=== PATIENT | male | born 1960 | race African-American/Black ===

== ENCOUNTER 2019-03-31 18:29 | Inpatient (IN) | payer OTHER ==
[~2019-03-31] VITALS: Ht 182.9 cm; Wt 88.6 kg
[2019-03-31] MEDS ORDERED: SODIUM CHLORIDE 3% 150 ML IV ONE (18:45)
[2019-03-31] MEDS ORDERED: HALOPERIDOL LACTATE 5 MG/ML VIAL ONE ×2 (18:47→18:54)
[2019-03-31] MEDS ORDERED: LORazepam 2 MG/ML VIAL ONE (18:51)
[2019-03-31] MEDS ORDERED: DiphenhydrAMINE HCL 50 MG/ML VIAL ONE (18:51)
[2019-03-31 18:52] LABS: EOSINOPHILS % (AUTO) 0 % (1.0-6.0); HEMOGLOBIN 12.9 g/dL (13.5-17.5); LYMPHOCYTES # (AUTO) 0.8 K/uL (1.0-4.8); LYMPHOCYTES % (AUTO) 6.4 % (22.0-44.0); MEAN CORPUSCULAR HEMOGLOBIN 28.8 pg (26.0-34.0); MEAN CORPUSCULAR HGB CONC 33.9 G/dL (31.0-37.0); MEAN CORPUSCULAR VOLUME 85 fL (80-100); MONOCYTES # (AUTO) 0.7 K/uL (0.1-1.0); MONOCYTES % (AUTO) 6.2 % (2.0-9.0); NEUTROPHILS # (AUTO) 10.3 K/uL (1.8-7.7); PLATELET COUNT (AUTO) 355 K/uL (150-450); RED BLOOD CELL COUNT(AUTO) 4.47 MIL/uL (4.50-5.90); RED CELL DISTRIBUTION WIDTH 15.6 % (11.5-14.5)
[2019-03-31 18:53] LABS: NEUTROPHILS % (AUTO) 87.4 % (40.0-70.0)
[2019-03-31] MEDS ORDERED: ROCURONIUM BROMIDE 10 MG/ML 5 ML VIAL ONE (19:01)
[2019-03-31] MEDS ORDERED: RAPID SEQUENCE KIT [RSI] 1 EACH KIT ONE (19:01)
[2019-03-31 19:02] LABS: CALCIUM, TOTAL 8.6 mg/dL (8.8-10.5); CREATININE 1.5 mg/dL (0.60-1.30); POTASSIUM 3.1 mmol/L (3.5-5.1)
[2019-03-31 19:04] LABS: ALBUMIN 3.7 g/dL (3.4-5.0); PROTHROMBIN TIME 9.8 SEC (9.4-11.6)
[2019-03-31 19:08] LABS: BILIRUBIN,TOTAL 1.5 mg/dL (0.1-1.0); TOTAL PROTEIN, SERUM 7.9 g/dL (6.4-8.2)
[2019-03-31] MEDS ORDERED: ASPIRIN 325 MG TABLET PO ONE (19:30)
[2019-03-31] MEDS ORDERED: DiphenhydrAMINE HCL 50 MG/ML VIAL IVP ONE (19:45)
[2019-03-31] MEDS ORDERED: HALOPERIDOL LACTATE 5 MG/ML VIAL IVP ONE ×2 (19:45)
[2019-03-31] MEDS ORDERED: DESMOPRESSIN ACETATE 4 MCG/ML VIAL IVP ONE (19:45)
[2019-03-31] MEDS ORDERED: LORazepam 2 MG/ML VIAL IVP ONE (19:45)
[2019-03-31] MEDS ORDERED: ASPIRIN 300 MG RECTAL SUPPOSITORY PR ONE (19:45)
[2019-03-31 20:34] LABS: CALCIUM, TOTAL 8.3 mg/dL (8.8-10.5); CREATININE 1.4 mg/dL (0.60-1.30); POTASSIUM 3.1 mmol/L (3.5-5.1)
[2019-03-31 21:01] LABS: APPEARANCE,URINE CLEAR (CLEAR); BILIRUBIN,URINE NEGATIVE (NEGATIVE); GLUCOSE, URINE (UA) NEGATIVE (NEGATIVE); KETONES,URINE NEGATIVE (NEGATIVE); LEUKOCYTE ESTERASE ,URINE NEGATIVE (NEGATIVE); NITRATE,URINE NEGATIVE (NEGATIVE); OCCULT BLOOD,URINE NEGATIVE (NEGATIVE); PH,URINE 6.5 (5.0-8.0); PROTEIN,URINE NEGATIVE (NEGATIVE); UROBILINOGEN,URINE 0.2 mg/dL (<=1.0)
[2019-03-31 21:07] LABS: AMPHET/METH SCREEN,URINE NEGATIVE (NEGATIVE); BARBITURATE SCREEN, URINE NEGATIVE (NEGATIVE); BENZODIAZEPINES SCREEN,URINE NEGATIVE (NEGATIVE); CANNABINOID SCREEN,URINE NEGATIVE (NEGATIVE); COCAINE SCREEN,URINE NEGATIVE (NEGATIVE); METHADONE SCREEN, URINE NEGATIVE (NEGATIVE); OPIATE SCREEN,URINE NEGATIVE (NEGATIVE)
[2019-03-31 21:09] LABS: PHENCYCLIDINE SCREEN,URINE NEGATIVE (NEGATIVE)
[2019-03-31 21:11] LABS: BACTERIA,URINE None Seen /HPF (None Seen); RBC,URINE None Seen /HPF (0-2); SQUAMOUS EPITHELIAL CELL,UR Few /LPF (None Seen); WBC,URINE None Seen /HPF (0-5)
[2019-03-31] MEDS: POTASSIUM CHL 10 MEQ/WATER 50 ML IV SCH ×3 (21:21→23:04)
[2019-03-31 21:53] LABS: MAGNESIUM 2.1 mg/dL (1.80-2.40)
[2019-03-31] MEDS ORDERED: ACETAMINOPHEN 325 MG TABLET PO PRN ×2 (22:30)
[2019-03-31] MEDS ORDERED: SODIUM CHLORIDE 3% 500 ML IV ONE (22:30)
[2019-03-31] MEDS ORDERED: 0.9% SODIUM CHLORIDE 10 ML SYRINGE IVP PRN (22:30)
[2019-03-31 22:42] LABS: SODIUM,URINE RANDOM 12 mmol/l (20-110)
[2019-03-31 22:44] LABS: OSMOLALITY,URINE 184 mOS/kg (50-1200)
[2019-04-01] VITALS (7 sets, daily range): BP systolic 104–169; BP diastolic 55–84
[2019-04-01] MEDS: HEPARIN SODIUM,PORCINE 5,000 UNITS/ML VIAL SQ SCH ×3 (00:39→16:00)
[2019-04-01 01:13] LABS: ANION GAP 5 mmol/L (8-16); CALCIUM, TOTAL 8.4 mg/dL (8.8-10.5); CARBON DIOXIDE 34 mmol/L (22-29); CHLORIDE 80 mmol/L (98-107); CREATININE 1.27 mg/dL (0.60-1.30); GLOMERULAR FILTR. RATE CALC > 60 mL/min (>60); GLUCOSE,RANDOM 129 mg/dL (70-110); PHOSPHORUS 3.1 mg/dL (2.5-4.9); POTASSIUM 3.5 mmol/L (3.5-5.1); UREA NITROGEN, BLOOD 9 mg/dL (7-18)
[2019-04-01 01:14] LABS: SODIUM SERUM 119 mmol/L (136-145)
[2019-04-01 04:57] LABS: BASOPHILS % (AUTO) 0.2 % (0.0-2.0); EOSINOPHILS % (AUTO) 0.1 % (1.0-6.0); HEMATOCRIT 40.1 % (41-53); HEMOGLOBIN 13.7 g/dL (13.5-17.5); LYMPHOCYTES # (AUTO) 1.5 K/uL (1.0-4.8); LYMPHOCYTES % (AUTO) 14.6 % (22.0-44.0); MEAN CORPUSCULAR HEMOGLOBIN 28.9 pg (26.0-34.0); MEAN CORPUSCULAR HGB CONC 34.1 G/dL (31.0-37.0); MEAN CORPUSCULAR VOLUME 85 fL (80-100); MONOCYTES # (AUTO) 1.1 K/uL (0.1-1.0); NEUTROPHILS % (AUTO) 75.1 % (40.0-70.0); PLATELET COUNT (AUTO) 337 K/uL (150-450); RED BLOOD CELL COUNT(AUTO) 4.74 MIL/uL (4.50-5.90); RED CELL DISTRIBUTION WIDTH 15.9 % (11.5-14.5)
[2019-04-01 05:09] LABS: ANION GAP 3 mmol/L (8-16); CALCIUM, TOTAL 8.4 mg/dL (8.8-10.5); CARBON DIOXIDE 35 mmol/L (22-29); CHLORIDE 80 mmol/L (98-107); CREATININE 1.28 mg/dL (0.60-1.30); GLOMERULAR FILTR. RATE CALC > 60 mL/min (>60); GLUCOSE,RANDOM 120 mg/dL (70-110); POTASSIUM 3.7 mmol/L (3.5-5.1); UREA NITROGEN, BLOOD 8 mg/dL (7-18)
[2019-04-01 05:16] LABS: SODIUM SERUM 118 mmol/L (136-145)
[2019-04-01] MEDS ORDERED: SODIUM CHLORIDE 3% 500 ML IV ONE (05:25)
[2019-04-01] MEDS ORDERED: ONDANSETRON HCL 4 MG/2 ML VIAL IVP PRN (05:30)
[2019-04-01] MEDS ORDERED: INFLUENZA VIRUS VACCINE QVS 2019-20 (3YR+)/PF 60 MCG/0.5 ML SYRINGE IM ONE (06:30)
[2019-04-01] MEDS: DOCUSATE SODIUM 100 MG CAPSULE PO SCH ×2 (08:21→20:53)
[2019-04-01] MEDS: FAMOTIDINE 20 MG TABLET PO SCH (09:00)
[2019-04-01] MEDS: LORazepam 2 MG/ML VIAL IVP PRN ×2 (09:50→21:55)
[2019-04-01] MEDS ORDERED: HALOPERIDOL LACTATE 5 MG/ML VIAL IM PRN (12:30)
[2019-04-02] VITALS: BP 106/63
[2019-04-02 04:00] VITALS: BP 122/71
[2019-04-02 06:13] LABS: ANION GAP 3 mmol/L (8-16); CALCIUM, TOTAL 8.6 mg/dL (8.8-10.5); CARBON DIOXIDE 35 mmol/L (22-29); CHLORIDE 89 mmol/L (98-107); CREATINE KINASE, TOTAL ONLY 571 U/L (39-308); CREATININE 1.29 mg/dL (0.60-1.30); GLOMERULAR FILTR. RATE CALC > 60 mL/min (>60); GLUCOSE,RANDOM 122 mg/dL (70-110); PHOSPHORUS 2.7 mg/dL (2.5-4.9); POTASSIUM 3.2 mmol/L (3.5-5.1); SODIUM SERUM 127 mmol/L (136-145); THYROID STIMULATING HORMONE 0.67 uIU/mL (0.36-3.74); UREA NITROGEN, BLOOD 6 mg/dL (7-18)
[2019-04-02 08:00] VITALS: BP 135/70
[2019-04-02] MEDS: HEPARIN SODIUM,PORCINE 5,000 UNITS/ML VIAL SQ SCH ×2 (08:00)
[2019-04-02] MEDS: FAMOTIDINE 20 MG TABLET PO SCH (09:00)
[2019-04-02] MEDS: DOCUSATE SODIUM 100 MG CAPSULE PO SCH (09:00)
[2019-04-02 09:19] VITALS: BP 116/78
[2019-04-02] MEDS ORDERED: SODIUM CHLORIDE 0.9% 1,000 ML IV SCH (10:18)
[2019-04-02] MEDS ORDERED: POTASSIUM CHL 10 MEQ/WATER 50 ML IV PRN (10:30)
[2019-04-02] MEDS ORDERED: POTASSIUM CHLORIDE 20 MEQ ER TABLET PO PRN (10:30)
== END 2019-04-02 12:45 | disposition left against medical advice (07) | DRG 682 ==
LOC: EDBD 18:33 → EMS 18:33 → ICU 22:00 → 5N 04-02 09:05
PROVIDERS: ADMIT Internal Medicine; ATTEND Internal Medicine
DX: N17.9 Acute kidney failure, unspecified (principal); G93.41 Metabolic encephalopathy; E87.1 Hypo-osmolality and hyponatremia; M62.82 Rhabdomyolysis; E87.6 Hypokalemia; Z53.29 Procedure and treatment not carried out because of patient's decision for other reasons; F10.20 Alcohol dependence, uncomplicated; R13.10 Dysphagia, unspecified; R45.1 Restlessness and agitation; Z82.49 Family history of ischemic heart disease and other diseases of the circulatory system; Z28.21 Immunization not carried out because of patient refusal; Z78.1 Physical restraint status
CPT/HCPCS: 82533; 83735; 83935; 84100; 84295; 84300; 84443; 86850; 86900; 86901; 87081; 93005; 93306; G0378; G0480; J1200; J1630; J1644; J2060; J2405; J2597; J3480; J3490; J7030

== ENCOUNTER 2022-02-25 23:42 | Emergency (ER) | payer OTHER ==
[~2022-02-25] VITALS: Ht 180.3 cm; Wt 77.3 kg
[2022-02-25] MEDS ORDERED: PANT-31 PO (23:52)
[2022-02-26 02:48] LABS: BASOPHILS % (AUTO) 0.6 % (0.0-2.0); EOSINOPHILS % (AUTO) 0.4 % (1.0-6.0); HEMATOCRIT 43.5 % (41-53); HEMOGLOBIN 14.1 g/dL (13.5-17.5); LYMPHOCYTES # (AUTO) 1.5 K/uL (1.0-4.8); LYMPHOCYTES % (AUTO) 16.5 % (22.0-44.0); MEAN CORPUSCULAR HEMOGLOBIN 28.6 pg (26.0-34.0); MEAN CORPUSCULAR HGB CONC 32.4 G/dL (31.0-37.0); MEAN CORPUSCULAR VOLUME 88 fL (80-100); MONOCYTES # (AUTO) 0.5 K/uL (0.1-1.0); MONOCYTES % (AUTO) 5.5 % (2.0-9.0); NEUTROPHILS # (AUTO) 6.9 K/uL (1.8-7.7); PLATELET COUNT (AUTO) 283 K/uL (150-450); RED BLOOD CELL COUNT(AUTO) 4.93 MIL/uL (4.50-5.90); RED CELL DISTRIBUTION WIDTH 14.9 % (11.5-14.5)
[2022-02-26 03:01] LABS: ANION GAP 8 mmol/L (8-16); CALCIUM, TOTAL 9.3 mg/dL (8.8-10.5); CARBON DIOXIDE 29 mmol/L (22-29); CHLORIDE 89 mmol/L (98-107); GLUCOSE,RANDOM 137 mg/dL (70-110); POTASSIUM 4.8 mmol/L (3.5-5.1); SODIUM SERUM 126 mmol/L (136-145); UREA NITROGEN, BLOOD 13 mg/dL (7-18)
[2022-02-26 03:03] LABS: GLOMERULAR FILTR. RATE CALC > 60 mL/min (>60)
[2022-02-26 03:06] LABS: ALANINE AMINOTRANSFERASE 27 U/L (12-78); ALBUMIN 4.2 g/dL (3.4-5.0); ALKALINE PHOSPHATASE 61 U/L (46-116); ASPARTATE AMINOTRANSFERASE 33 U/L (15-37); BILIRUBIN,TOTAL 1.1 mg/dL (0.1-1.0); LIPASE 140 U/L (73-393); TOTAL PROTEIN, SERUM 8.9 g/dL (6.4-8.2)
[2022-02-26] MEDS ORDERED: SODIUM CHLORIDE 0.9% 1,000 ML IV ONE (06:30)
[2022-02-26] MEDS ORDERED: ONDANSETRON HCL 4 MG/2 ML VIAL IVP ONE (06:30)
[2022-02-26 06:56] LABS: CREATINE KINASE, TOTAL ONLY 645 U/L (39-308)
[2022-02-26 06:57] LABS: APPEARANCE,URINE CLEAR (CLEAR); BILIRUBIN,URINE NEGATIVE (NEGATIVE); GLUCOSE, URINE (UA) NEGATIVE (NEGATIVE); LEUKOCYTE ESTERASE ,URINE NEGATIVE (NEGATIVE); NITRATE,URINE NEGATIVE (NEGATIVE); OCCULT BLOOD,URINE NEGATIVE (NEGATIVE); PROTEIN,URINE NEGATIVE (NEGATIVE); SPECIFIC GRAVITIY, URINE 1.004 (1.003-1.030); UROBILINOGEN,URINE <=1.0 mg/dL (<=1.0)
[2022-02-26 07:29] LABS: BACTERIA,URINE None Seen /HPF (None Seen); RBC,URINE None Seen /HPF (0-2); SQUAMOUS EPITHELIAL CELL,UR None Seen /LPF (None Seen); WBC,URINE None Seen /HPF (0-5)
[2022-02-26 07:55] VITALS: BP 159/99
[2022-02-26] MEDS ORDERED: PANT-31 PO (08:38)
[2022-02-26] MEDS ORDERED: MAG30ORA11 PO (08:38)
[2022-02-26] MEDS ORDERED: ONDA-104 PO (08:38)
== END 2022-02-26 09:06 | disposition home or self-care (01) ==
LOC: EMS 23:42
DX: E87.1 Hypo-osmolality and hyponatremia (principal); E86.0 Dehydration; K22.0 Achalasia of cardia
CPT/HCPCS: 99285; 80053; 81001; 82550; 83690; 84484; 85025; 36415; 96374; 71045; 96361; 93005; J2405; J7030

== ENCOUNTER 2022-02-28 12:34 | Inpatient (IN) | payer OTHER ==
[~2022-02-28] VITALS: Ht 180.3 cm; Wt 94.7 kg
[~2022-02-28 12:34] MED LIST: MAG30ORA11 PO; ONDA-104 PO; PANT-31 PO
[2022-02-28 13:43] LABS: EOSINOPHILS % (AUTO) 0.5 % (1.0-6.0); LYMPHOCYTES # (AUTO) 1.1 K/uL (1.0-4.8); MEAN CORPUSCULAR HEMOGLOBIN 28.9 pg (26.0-34.0); MEAN CORPUSCULAR HGB CONC 33.3 G/dL (31.0-37.0); MEAN CORPUSCULAR VOLUME 87 fL (80-100); MONOCYTES # (AUTO) 0.3 K/uL (0.1-1.0); MONOCYTES % (AUTO) 6.6 % (2.0-9.0); NEUTROPHILS # (AUTO) 3.4 K/uL (1.8-7.7); NEUTROPHILS % (AUTO) 68.9 % (40.0-70.0); PLATELET COUNT (AUTO) 264 K/uL (150-450); RED BLOOD CELL COUNT(AUTO) 4.49 MIL/uL (4.50-5.90); RED CELL DISTRIBUTION WIDTH 14.3 % (11.5-14.5)
[2022-02-28 13:58] LABS: ALANINE AMINOTRANSFERASE 29 U/L (12-78); ALBUMIN 3.4 g/dL (3.4-5.0); ALKALINE PHOSPHATASE 49 U/L (46-116); ANION GAP 9 mmol/L (8-16); ASPARTATE AMINOTRANSFERASE 37 U/L (15-37); BILIRUBIN,TOTAL 0.6 mg/dL (0.1-1.0); CALCIUM, TOTAL 8.5 mg/dL (8.8-10.5); CARBON DIOXIDE 25 mmol/L (22-29); CHLORIDE 89 mmol/L (98-107); CREATININE 1.08 mg/dL (0.60-1.30); GLUCOSE,RANDOM 106 mg/dL (70-110); POTASSIUM 3.5 mmol/L (3.5-5.1); TOTAL PROTEIN, SERUM 7.8 g/dL (6.4-8.2); UREA NITROGEN, BLOOD 4 mg/dL (7-18)
[2022-02-28 14:04] LABS: GLOMERULAR FILTR. RATE CALC > 60 mL/min (>60); SODIUM SERUM 123 mmol/L (136-145)
[2022-02-28 14:45] LABS: COVID AG,FIA SOURCE NASOPHARYNGEAL
[2022-02-28 14:55] LABS: PHOSPHORUS 2.5 mg/dL (2.5-4.9)
[2022-02-28] MEDS ORDERED: MAGNESIUM SULFATE 1 GM in DEXTROSE 5%-WATER 50 ML IV ONE (15:00)
[2022-02-28 15:10] LABS: B-TYPE NATRIURETIC PEPTIDE 113 pg/mL (0-100)
[2022-02-28 15:20] LABS: CREATINE KINASE, TOTAL ONLY 893 U/L (39-308)
[2022-02-28 19:12] LABS: APPEARANCE,URINE CLEAR (CLEAR); BILIRUBIN,URINE NEGATIVE (NEGATIVE); GLUCOSE, URINE (UA) NEGATIVE (NEGATIVE); KETONES,URINE NEGATIVE (NEGATIVE); LEUKOCYTE ESTERASE ,URINE NEGATIVE (NEGATIVE); NITRATE,URINE NEGATIVE (NEGATIVE); OCCULT BLOOD,URINE NEGATIVE (NEGATIVE); PH,URINE 6.5 (5.0-8.0); PROTEIN,URINE NEGATIVE (NEGATIVE); SPECIFIC GRAVITIY, URINE 1.001 (1.003-1.030); UROBILINOGEN,URINE <=1.0 mg/dL (<=1.0)
[2022-02-28 19:13] LABS: CREATININE,URINE RANDOM 14.5 mg/dL (30.0-125.0)
[2022-02-28 21:14] LABS: ANION GAP 7 mmol/L (8-16); CALCIUM, TOTAL 9.1 mg/dL (8.8-10.5); CARBON DIOXIDE 27 mmol/L (22-29); CHLORIDE 97 mmol/L (98-107); CREATININE 1.05 mg/dL (0.60-1.30); GLUCOSE,RANDOM 115 mg/dL (70-110); POTASSIUM 3.7 mmol/L (3.5-5.1); SODIUM SERUM 131 mmol/L (136-145); UREA NITROGEN, BLOOD 4 mg/dL (7-18)
[2022-02-28 21:15] LABS: GLOMERULAR FILTR. RATE CALC > 60 mL/min (>60)
[2022-02-28] MEDS ORDERED: DEXTROSE 5%-WATER 1,000 ML IV ONE (21:45)
[2022-02-28] MEDS ORDERED: PB/HYOSCY/ATR/SCOP/LIDO/MAALOX 55 ML BOTTLE PO ONE (22:00)
[2022-02-28 23:11] VITALS: BP 182/121
[2022-03-01 00:45] VITALS: BP 145/92
[2022-03-01 02:38] LABS: ANION GAP 2 mmol/L (8-16); CALCIUM, TOTAL 9.2 mg/dL (8.8-10.5); CARBON DIOXIDE 32 mmol/L (22-29); CHLORIDE 99 mmol/L (98-107); CREATININE 1.17 mg/dL (0.60-1.30); GLUCOSE,RANDOM 148 mg/dL (70-110); POTASSIUM 3.8 mmol/L (3.5-5.1); SODIUM SERUM 133 mmol/L (136-145); UREA NITROGEN, BLOOD 5 mg/dL (7-18)
[2022-03-01 02:55] LABS: GLOMERULAR FILTR. RATE CALC > 60 mL/min (>60)
[2022-03-01 04:21] VITALS: BP 159/78
[2022-03-01 06:18] LABS: ANION GAP 3 mmol/L (8-16); CALCIUM, TOTAL 8.4 mg/dL (8.8-10.5); CARBON DIOXIDE 31 mmol/L (22-29); CHLORIDE 100 mmol/L (98-107); CREATININE 1.14 mg/dL (0.60-1.30); GLUCOSE,RANDOM 150 mg/dL (70-110); POTASSIUM 3.8 mmol/L (3.5-5.1); SODIUM SERUM 134 mmol/L (136-145); UREA NITROGEN, BLOOD 6 mg/dL (7-18)
[2022-03-01 06:22] LABS: GLOMERULAR FILTR. RATE CALC > 60 mL/min (>60)
[2022-03-01 06:23] LABS: BASOPHILS % (AUTO) 1.1 % (0.0-2.0); EOSINOPHILS % (AUTO) 0.7 % (1.0-6.0); HEMATOCRIT 41.1 % (41-53); HEMOGLOBIN 13.6 g/dL (13.5-17.5); LYMPHOCYTES # (AUTO) 1.3 K/uL (1.0-4.8); LYMPHOCYTES % (AUTO) 28.4 % (22.0-44.0); MEAN CORPUSCULAR HEMOGLOBIN 29.1 pg (26.0-34.0); MEAN CORPUSCULAR HGB CONC 33.2 G/dL (31.0-37.0); MEAN CORPUSCULAR VOLUME 88 fL (80-100); MONOCYTES # (AUTO) 0.5 K/uL (0.1-1.0); MONOCYTES % (AUTO) 11.6 % (2.0-9.0); NEUTROPHILS # (AUTO) 2.7 K/uL (1.8-7.7); NEUTROPHILS % (AUTO) 58.2 % (40.0-70.0); PLATELET COUNT (AUTO) 264 K/uL (150-450); RED BLOOD CELL COUNT(AUTO) 4.69 MIL/uL (4.50-5.90); RED CELL DISTRIBUTION WIDTH 14.4 % (11.5-14.5)
[2022-03-01] MEDS ORDERED: DESMOPRESSIN ACETATE 4 MCG/ML VIAL IVP ONE (07:00)
[2022-03-01 07:26] VITALS: BP 151/97
[2022-03-01] MEDS: DEXTROSE 5%-WATER 1,000 ML IV SCH ×2 (09:12→15:07)
[2022-03-01 11:27] VITALS: BP 157/100
[2022-03-01] MEDS ORDERED: ONDANSETRON HCL 4 MG/2 ML VIAL IVP PRN (15:00)
[2022-03-01] MEDS ORDERED: PANTOPRAZOLE SODIUM 40 MG/VIAL IVP SCH (15:00)
[2022-03-01 15:06] VITALS: BP 165/99
[2022-03-01 15:32] LABS: ANION GAP -4 mmol/L (8-16); CARBON DIOXIDE 38 mmol/L (22-29); CHLORIDE 95 mmol/L (98-107); CREATININE 1.19 mg/dL (0.60-1.30); GLUCOSE,RANDOM 110 mg/dL (70-110); POTASSIUM 4.6 mmol/L (3.5-5.1); SODIUM SERUM 129 mmol/L (136-145); UREA NITROGEN, BLOOD 8 mg/dL (7-18)
[2022-03-01 15:42] LABS: PHOSPHORUS 3.2 mg/dL (2.5-4.9)
[2022-03-01 15:43] LABS: GLOMERULAR FILTR. RATE CALC > 60 mL/min (>60)
[2022-03-01 17:01] LABS: ANION GAP 3 mmol/L (8-16); CALCIUM, TOTAL 8.4 mg/dL (8.8-10.5); CARBON DIOXIDE 31 mmol/L (22-29); CHLORIDE 94 mmol/L (98-107); CREATININE 1.14 mg/dL (0.60-1.30); GLOMERULAR FILTR. RATE CALC > 60 mL/min (>60); GLUCOSE,RANDOM 117 mg/dL (70-110); POTASSIUM 4.4 mmol/L (3.5-5.1); SODIUM SERUM 128 mmol/L (136-145); UREA NITROGEN, BLOOD 7 mg/dL (7-18)
[2022-03-01] MEDS: LISINOPRIL 5 MG TABLET PO SCH ×2 (17:18→23:40)
[2022-03-01 20:00] VITALS: BP 215/130
[2022-03-01] MEDS ORDERED: PB/HYOSCY/ATR/SCOP/LIDO/MAALOX 55 ML BOTTLE PO ONE (20:30)
[2022-03-01] MEDS ORDERED: SODIUM CHLORIDE 0.9% 500 ML IV ONE (20:45)
[2022-03-02] VITALS: BP 158/88
[2022-03-02] MEDS: SODIUM CHLORIDE 0.9% 1,000 ML IV SCH ×3 (02:12→21:44)
[2022-03-02 04:00] VITALS: BP 141/102
[2022-03-02 06:47] LABS: BASOPHILS % (AUTO) 0.5 % (0.0-2.0); EOSINOPHILS % (AUTO) 1.6 % (1.0-6.0); HEMATOCRIT 38.2 % (41-53); HEMOGLOBIN 12.7 g/dL (13.5-17.5); LYMPHOCYTES # (AUTO) 1.1 K/uL (1.0-4.8); LYMPHOCYTES % (AUTO) 18.2 % (22.0-44.0); MEAN CORPUSCULAR HEMOGLOBIN 29.4 pg (26.0-34.0); MEAN CORPUSCULAR HGB CONC 33.2 G/dL (31.0-37.0); MEAN CORPUSCULAR VOLUME 89 fL (80-100); MONOCYTES # (AUTO) 0.4 K/uL (0.1-1.0); MONOCYTES % (AUTO) 6.8 % (2.0-9.0); NEUTROPHILS # (AUTO) 4.5 K/uL (1.8-7.7); NEUTROPHILS % (AUTO) 72.9 % (40.0-70.0); PLATELET COUNT (AUTO) 252 K/uL (150-450); RED BLOOD CELL COUNT(AUTO) 4.31 MIL/uL (4.50-5.90); RED CELL DISTRIBUTION WIDTH 14.1 % (11.5-14.5)
[2022-03-02 06:50] LABS: ALANINE AMINOTRANSFERASE 22 U/L (12-78); ALBUMIN 3.1 g/dL (3.4-5.0); ALKALINE PHOSPHATASE 43 U/L (46-116); ANION GAP 5 mmol/L (8-16); ASPARTATE AMINOTRANSFERASE 23 U/L (15-37); BILIRUBIN,TOTAL 0.6 mg/dL (0.1-1.0); CARBON DIOXIDE 27 mmol/L (22-29); CHLORIDE 93 mmol/L (98-107); CREATININE 1.01 mg/dL (0.60-1.30); GLUCOSE,RANDOM 122 mg/dL (70-110); POTASSIUM 3.2 mmol/L (3.5-5.1); SODIUM SERUM 125 mmol/L (136-145); TOTAL PROTEIN, SERUM 6.9 g/dL (6.4-8.2); UREA NITROGEN, BLOOD 5 mg/dL (7-18)
[2022-03-02 06:52] LABS: GLOMERULAR FILTR. RATE CALC > 60 mL/min (>60)
[2022-03-02 08:15] VITALS: BP 142/97
[2022-03-02] MEDS: PANTOPRAZOLE SODIUM 40 MG/VIAL IVP SCH ×2 (09:16→20:26)
[2022-03-02] MEDS: LISINOPRIL 5 MG TABLET PO SCH ×2 (09:17→20:26)
[2022-03-02] MEDS ORDERED: FUROSEMIDE 40 MG/4 ML VIAL IVP ONE (11:45)
[2022-03-02 12:00] VITALS: BP 170/102
[2022-03-02] MEDS: SODIUM CHLORIDE 1 GM TABLET PO SCH ×3 (12:27→23:48)
[2022-03-02 12:34] LABS: ANION GAP 3 mmol/L (8-16); CALCIUM, TOTAL 8.4 mg/dL (8.8-10.5); CARBON DIOXIDE 29 mmol/L (22-29); CHLORIDE 98 mmol/L (98-107); CREATININE 1.07 mg/dL (0.60-1.30); GLOMERULAR FILTR. RATE CALC > 60 mL/min (>60); GLUCOSE,RANDOM 126 mg/dL (70-110); POTASSIUM 3.9 mmol/L (3.5-5.1); SODIUM SERUM 130 mmol/L (136-145); UREA NITROGEN, BLOOD 5 mg/dL (7-18)
[2022-03-02 16:05] VITALS: BP 110/75
[2022-03-02 19:59] VITALS: BP 142/93
[2022-03-03 00:05] VITALS: BP 150/103
[2022-03-03 04:43] VITALS: BP 129/56
[2022-03-03] MEDS: SODIUM CHLORIDE 1 GM TABLET PO SCH (06:24)
[2022-03-03 07:04] LABS: BASOPHILS % (AUTO) 0.4 % (0.0-2.0); EOSINOPHILS % (AUTO) 1.2 % (1.0-6.0); HEMATOCRIT 37.7 % (41-53); HEMOGLOBIN 12.5 g/dL (13.5-17.5); LYMPHOCYTES # (AUTO) 1.3 K/uL (1.0-4.8); LYMPHOCYTES % (AUTO) 18.6 % (22.0-44.0); MEAN CORPUSCULAR HEMOGLOBIN 29.2 pg (26.0-34.0); MEAN CORPUSCULAR HGB CONC 33.1 G/dL (31.0-37.0); MEAN CORPUSCULAR VOLUME 88 fL (80-100); MONOCYTES # (AUTO) 0.6 K/uL (0.1-1.0); NEUTROPHILS # (AUTO) 5.2 K/uL (1.8-7.7); NEUTROPHILS % (AUTO) 71.8 % (40.0-70.0); PLATELET COUNT (AUTO) 258 K/uL (150-450); RED BLOOD CELL COUNT(AUTO) 4.27 MIL/uL (4.50-5.90); RED CELL DISTRIBUTION WIDTH 14.6 % (11.5-14.5)
[2022-03-03 07:05] LABS: ALANINE AMINOTRANSFERASE 22 U/L (12-78); ALKALINE PHOSPHATASE 38 U/L (46-116); ANION GAP 5 mmol/L (8-16); ASPARTATE AMINOTRANSFERASE 18 U/L (15-37); BILIRUBIN,TOTAL 0.4 mg/dL (0.1-1.0); CALCIUM, TOTAL 8.5 mg/dL (8.8-10.5); CARBON DIOXIDE 31 mmol/L (22-29); CHLORIDE 102 mmol/L (98-107); CREATININE 1.11 mg/dL (0.60-1.30); GLUCOSE,RANDOM 105 mg/dL (70-110); POTASSIUM 3.5 mmol/L (3.5-5.1); SODIUM SERUM 138 mmol/L (136-145); TOTAL PROTEIN, SERUM 6.8 g/dL (6.4-8.2); UREA NITROGEN, BLOOD 6 mg/dL (7-18)
[2022-03-03 07:11] LABS: GLOMERULAR FILTR. RATE CALC > 60 mL/min (>60)
[2022-03-03 08:00] VITALS: BP 145/99
[2022-03-03] MEDS: PANTOPRAZOLE SODIUM 40 MG/VIAL IVP SCH (08:59)
[2022-03-03] MEDS: LISINOPRIL 5 MG TABLET PO SCH (09:00)
[2022-03-03 12:13] VITALS: BP 162/93
[2022-03-03] MEDS ORDERED: LISI-892 PO (14:16)
== END 2022-03-03 15:25 | disposition home or self-care (01) | DRG 641 ==
LOC: EMS 12:35 → 5S 19:00
PROVIDERS: ADMIT Internal Medicine; ATTEND Internal Medicine
DX: E87.1 Hypo-osmolality and hyponatremia (principal); Z20.822 Contact with and (suspected) exposure to COVID-19; R13.10 Dysphagia, unspecified; E83.42 Hypomagnesemia; I10 Essential (primary) hypertension; K21.9 Gastro-esophageal reflux disease without esophagitis; K44.9 Diaphragmatic hernia without obstruction or gangrene; Z79.899 Other long term (current) drug therapy
CPT/HCPCS: 80048; 80053; 81003; 82550; 82570; 83735; 83880; 83930; 83935; 84100; 84133; 84295; 84300; 84443; 84484; 84540; 85025; 92610; 93005; 99285; C9113; G0378; J1940; J2597; J3475; J7030; J7040; J7060

== ENCOUNTER 2022-04-25 11:28 | Inpatient (IN) | payer OTHER ==
[~2022-04-25] VITALS: Ht 177.8 cm; Wt 8.6 kg
[~2022-04-25 11:28] MED LIST changes: +LISI-892 PO; -MAG30ORA11 PO; -ONDA-104 PO
[2022-04-25] MEDS ORDERED: METO25TA3 PO (11:36)
[2022-04-25] MEDS ORDERED: LISI-893 PO (11:36)
[2022-04-25] MEDS ORDERED: BACL10TA PO (11:36)
[2022-04-25 12:19] LABS: BASOPHILS % (AUTO) 0.1 % (0.0-2.0); EOSINOPHILS % (AUTO) 0 % (1.0-6.0); HEMATOCRIT 41.1 % (41-53); HEMOGLOBIN 13.9 g/dL (13.5-17.5); LYMPHOCYTES # (AUTO) 0.7 K/uL (1.0-4.8); LYMPHOCYTES % (AUTO) 5.9 % (22.0-44.0); MEAN CORPUSCULAR HEMOGLOBIN 29.5 pg (26.0-34.0); MEAN CORPUSCULAR HGB CONC 33.8 G/dL (31.0-37.0); MEAN CORPUSCULAR VOLUME 87 fL (80-100); MONOCYTES # (AUTO) 0.8 K/uL (0.1-1.0); NEUTROPHILS # (AUTO) 11.1 K/uL (1.8-7.7); PLATELET COUNT (AUTO) 310 K/uL (150-450); RED BLOOD CELL COUNT(AUTO) 4.71 MIL/uL (4.50-5.90); RED CELL DISTRIBUTION WIDTH 14.4 % (11.5-14.5)
[2022-04-25 12:30] LABS: ALBUMIN 3.9 g/dL (3.4-5.0); CALCIUM, TOTAL 9.4 mg/dL (8.8-10.5); CREATININE 2.03 mg/dL (0.60-1.30); TOTAL PROTEIN, SERUM 8.6 g/dL (6.4-8.2)
[2022-04-25 12:32] LABS: POTASSIUM 2.9 mmol/L (3.5-5.1)
[2022-04-25] MEDS: POTASSIUM CHL 10 MEQ/WATER 50 ML IV SCH ×4 (15:12→19:12)
[2022-04-25] MEDS ORDERED: LORazepam 1 MG TABLET PO ONE (16:00)
[2022-04-25 17:10] LABS: CALCIUM, TOTAL 9.3 mg/dL (8.8-10.5); CREATININE 1.88 mg/dL (0.60-1.30)
[2022-04-25 18:04] LABS: COVID AG,FIA SOURCE NASAL SWAB
[2022-04-25] MEDS: SODIUM CHLORIDE 0.9% 1,000 ML IV SCH (18:15)
[2022-04-25] MEDS ORDERED: ALBUTEROL SULFATE 2.5 MG/0.5 ML NEB SOLUTION NEB PRN (19:45)
[2022-04-25] MEDS ORDERED: IPRATROPIUM BROMIDE 0.5 MG/2.5 ML NEB SOLUTION NEB PRN (19:45)
[2022-04-25 20:19] LABS: APPEARANCE,URINE HAZY (CLEAR); BILIRUBIN,URINE NEGATIVE (NEGATIVE); GLUCOSE, URINE (UA) NEGATIVE (NEGATIVE); KETONES,URINE TRACE mg/dL (NEGATIVE); LEUKOCYTE ESTERASE ,URINE LARGE (NEGATIVE); NITRATE,URINE NEGATIVE (NEGATIVE); OCCULT BLOOD,URINE LARGE (NEGATIVE); PH,URINE 6.5 (5.0-8.0); PROTEIN,URINE 30-70 mg/dL (NEGATIVE); SPECIFIC GRAVITIY, URINE 1.009 (1.003-1.030); UROBILINOGEN,URINE <=1.0 mg/dL (<=1.0)
[2022-04-25 20:30] LABS: BACTERIA,URINE Moderate /HPF (None Seen); SQUAMOUS EPITHELIAL CELL,UR Few /LPF (None Seen); WBC,URINE 26-50 /HPF (0-5)
[2022-04-25] MEDS ORDERED: CefTRIAXone 1 GM/DEXTROSE 50 ML IV SCH (22:00)
[2022-04-25] MEDS ORDERED: AmLODIPine BESYLATE 5 MG TABLET PO SCH (22:15)
[2022-04-25 22:43] VITALS: BP 152/79
[2022-04-25] MEDS: HEPARIN SODIUM,PORCINE 5,000 UNITS/ML VIAL SQ SCH (23:18)
[2022-04-25] MEDS: ACETAMINOPHEN 325 MG TABLET PO PRN (23:19)
[2022-04-26 03:08] VITALS: BP 147/62
[2022-04-26 04:03] VITALS: BP 147/62
[2022-04-26] MEDS: ONDANSETRON HCL 4 MG/2 ML VIAL IVP PRN ×2 (05:59→14:42)
[2022-04-26 07:05] LABS: CALCIUM, TOTAL 8.9 mg/dL (8.8-10.5); CREATININE 1.65 mg/dL (0.60-1.30); MAGNESIUM 2.2 mg/dL (1.80-2.40); POTASSIUM 3.4 mmol/L (3.5-5.1)
[2022-04-26 07:10] LABS: BASOPHILS % (AUTO) 0.1 % (0.0-2.0); EOSINOPHILS % (AUTO) 0.1 % (1.0-6.0); HEMATOCRIT 41.5 % (41-53); LYMPHOCYTES # (AUTO) 1.5 K/uL (1.0-4.8); LYMPHOCYTES % (AUTO) 14.4 % (22.0-44.0); MEAN CORPUSCULAR HEMOGLOBIN 29.4 pg (26.0-34.0); MEAN CORPUSCULAR HGB CONC 33.7 G/dL (31.0-37.0); MEAN CORPUSCULAR VOLUME 87 fL (80-100); MONOCYTES % (AUTO) 9.9 % (2.0-9.0); NEUTROPHILS % (AUTO) 75.5 % (40.0-70.0); PLATELET COUNT (AUTO) 321 K/uL (150-450); RED BLOOD CELL COUNT(AUTO) 4.76 MIL/uL (4.50-5.90); RED CELL DISTRIBUTION WIDTH 14.4 % (11.5-14.5)
[2022-04-26 07:25] VITALS: BP 138/87
[2022-04-26] MEDS: BACLOFEN 10 MG TABLET PO SCH ×2 (08:14→15:24)
[2022-04-26] MEDS: ACETAMINOPHEN 325 MG TABLET PO PRN (08:14)
[2022-04-26] MEDS: HEPARIN SODIUM,PORCINE 5,000 UNITS/ML VIAL SQ SCH ×2 (08:16→15:24)
[2022-04-26] MEDS ORDERED: METOPROLOL SUCCINATE 25 MG ER TABLET PO SCH (09:00)
[2022-04-26] MEDS: SODIUM CHLORIDE 0.9% 1,000 ML IV SCH (09:26)
[2022-04-26] MEDS ORDERED: PANTOPRAZOLE SODIUM 40 MG/VIAL IVP SCH (10:45)
[2022-04-26 11:08] LABS: ABG BASE EXCESS 13.9 mmol/L (-2.0-3.0); ABG CARBOXYHEMOGLOBIN 0.9 % (0.0-1.5); ABG HCO3 35.6 mmol/L (22.0-26.0); ABG METHEMOGLOBIN 0.2 % (0.0-1.5); ABG OXYGEN CONTENT 19.2 mL/dL (15.0-23.0); ABG OXYGEN SATURATION 93.1 % (95.0-98.0); ABG OXYHEMOGLOBIN 92.1 % (94.0-100.0); ABG PCO2 50 mmHg (35-45); ABG PH 7.491 (7.35-7.450); ABG TOTAL HEMOGLOBIN 14.8 G/dL (12.0-18.0); PO2, ARTERIAL BG 65.4 mmHg (79.0-87.0); SOURCE, BLOOD GAS ARTERIAL; TEMPERATURE, FAHRENHEIT, BG 98.6 FAHREN (96.0-98.6)
[2022-04-26] MEDS ORDERED: BARIUM SULFATE 0.1% SUSPENSION 450 ML BOTTLE ONE (11:08)
[2022-04-26 11:11] LABS: SITE, BLOOD GAS LFT RADIAL
[2022-04-26 11:12] LABS: ABG A-A DIFF O2 24.6 mmHg (10-20.0); O2 DEVICE,BLOOD GAS ROOM AIR (ROOM AIR)
[2022-04-26 11:21] VITALS: BP 159/90
[2022-04-26] MEDS ORDERED: POTASSIUM CHLORIDE 20 MEQ ER TABLET PO ONE (12:00)
[2022-04-26 13:18] LABS: AMPHET/METH SCREEN,URINE NEGATIVE (NEGATIVE); BARBITURATE SCREEN, URINE NEGATIVE (NEGATIVE); BENZODIAZEPINES SCREEN,URINE NEGATIVE (NEGATIVE); CANNABINOID SCREEN,URINE NEGATIVE (NEGATIVE); COCAINE SCREEN,URINE NEGATIVE (NEGATIVE); METHADONE SCREEN, URINE NEGATIVE (NEGATIVE); OPIATE SCREEN,URINE NEGATIVE (NEGATIVE)
[2022-04-26 13:20] LABS: PHENCYCLIDINE SCREEN,URINE NEGATIVE (NEGATIVE)
[2022-04-26 14:55] VITALS: BP 122/80
[2022-04-26] MEDS ORDERED: AMLO-257 PO (16:15)
[2022-04-26] MEDS ORDERED: HEPA500018 SQ (16:16)
[2022-04-26] MEDS ORDERED: [UNRECOGNIZED DRUG - CODE] IV (16:16)
[2022-04-26] MEDS ORDERED: PANT40VI14 IVP (16:17)
[2022-04-26] MEDS ORDERED: ACET-2247 PO (16:18)
[2022-04-26] MEDS ORDERED: ONDA-104 PO (16:19)
== END 2022-04-26 18:45 | disposition critical access hospital (66) | DRG 640 ==
LOC: EMS 11:29 → 5S 20:00
PROVIDERS: ADMIT Internal Medicine; ATTEND Internal Medicine
DX: E87.1 Hypo-osmolality and hyponatremia (principal); E43 Unspecified severe protein-calorie malnutrition; N17.0 Acute kidney failure with tubular necrosis; N39.0 Urinary tract infection, site not specified; E87.3 Alkalosis; E87.6 Hypokalemia; E86.0 Dehydration; E86.1 Hypovolemia; E87.70 Fluid overload, unspecified; G89.4 Chronic pain syndrome; R73.9 Hyperglycemia, unspecified; Z20.822 Contact with and (suspected) exposure to COVID-19; I10 Essential (primary) hypertension; Z79.899 Other long term (current) drug therapy; Z68.27 Body mass index [BMI] 27.0-27.9, adult
CPT/HCPCS: 36600; 71045; 74176; 76770; 80048; 80053; 80307; 81001; 82436; 82570; 82805; 83735; 83930; 83935; 84300; 85025; 87086; 87186; 93005; 99285; C9113; J0696; J1644; J2405; J3480; J7030; Q9967; 36415-L1; 36415-TC